=== PATIENT | male | born 1995 | race Hispanic/Latino ===

== ENCOUNTER 2020-03-21 15:02 | Observation (INO) | payer OTHER ==
[~2020-03-21] VITALS: Ht 175.3 cm; Wt 75.0 kg
--- NOTE | 2020-03-21 15:22 | NUR ---
TRIAGED AND RETURNED TO WAITING ROOM PENDING ROOM AVAILABLE. ACCOMPANIED BY FRIEND, STEADY GAIT, NO ACUTE SX OF DISTRESS
[2020-03-21 18:33] LABS: ALBUMIN 4.5 g/dL (3.2-5.0); ALKALINE PHOSPHATASE 92 u/l (38-126); ANION GAP 13 (6-22 (CALC)); BILIRUBIN, TOTAL 0.8 mg/dL (0.0-1.4); BUN 11 mg/dL (9-20); BUN/CREATININE RATIO 15 (12-20 (CALC)); CARBON DIOXIDE 27 mmol/l (22-30); CHLORIDE 105 mmol/l (95-108); CREATININE 0.8 mg/dL (0.7-1.3); GFR > 60 ML/MIN (>=60 (CALC)); GFR FOR AFR.AMER. > 60 ML/MIN (>=60 (CALC)); LIPASE 70 u/l (23-300); POTASSIUM 4.1 mmol/l (3.5-5.1); SGOT/AST 33 u/l (17-59); SODIUM 141 mmol/l (137-146); TOTAL PROTEIN 7.6 g/dL (6.3-8.2)
[2020-03-21 18:43] LABS: URINE BILIRUBIN - DIPSTICK NEGATIVE (NEGATIVE); URINE BLOOD DIPSTICK NEGATIVE (NEGATIVE); URINE COLOR YELLOW; URINE GLUCOSE - DIPSTICK NEGATIVE (NEGATIVE); URINE KETONE NEGATIVE (NEGATIVE); URINE LEUK ESTERASE NEGATIVE (NEGATIVE); URINE NITRITE - DIPSTICK NEGATIVE (Negative); URINE PROTEIN - DIPSTICK NEGATIVE (NEG-TRACE); URINE SPECIFIC GRAVITY 1.025
--- NOTE | 2020-03-21 19:00 | NUR ---
PT RESTING ON STRETCHER IN NAD. RESP EVEN AND UNLABORED. SKIN WARM AND DRY. DISCUSSED PLAN OF CARE. VERBALIZED UNDERSTANDING. DENIES ANY NEEDS. VISITOR BEDSIDE WITH PT. CALL LIGHT WITHIN REACH.
[2020-03-21 19:32] LABS: HEMATOCRIT 44.4 % (39.0-50.0); HEMOGLOBIN 14.7 g/dl (14.0-18.0); IMMATURE GRANULOCYTES 0.2 % (0.0-5.0); MEAN CELL VOLUME 97.6 fL CALC (80.0-100.0); MEAN CORPUSCULAR HGB 32.3 pG CALC (26.0-32.0); MEAN CORPUSCULAR HGB CONC 33.1 g/dL CAL (32.0-36.0); NEUT# 7.33 thou/uL (1.82-7.42); RED BLOOD COUNT 4.55 mill/uL (4.70-6.10)
--- NOTE | 2020-03-21 19:35 | NUR ---
REPORT RECEIVED FROM JESÚS. PATIENT RESTING ON STRETCHER. AWAITING CAT SCAN TO BE COMPLETED.
--- NOTE | 2020-03-21 20:35 | NUR ---
PT RETURNS FROM CT VIA WC. PT RESTING ON STRETCHER WITH EYES OPEN. DISCUSSED WAIT TIME FOR RESULTS WITH PT. VEBRALIZED UNDERSTANDING. DENIES ANY NEEDS. VSS. SKIN WARM AND DRY.
--- NOTE | 2020-03-21 21:15 | NUR ---
NEW IV ESTABLISHED. PREVIOUS IV DISCONTINUED DUE TO DIFFICULTY FLUSHING. PATIENT DENIED PAIN AT IV SITE, BUT DID NOT FLUSHE WITH EASE.
--- NOTE | 2020-03-21 21:30 | NUR ---
IVF HUNG AND ABX HUNG ORDERED. PATIENT INFORMED OF PLANS TO ADMIT TO HOSPITAL AND HAVE SURGERY IN THE MORNING. PATIENT ALSO INFORMED OF ER HOLD ADMIT STATUS. VISITOR AND PATIENT VERBALIZED UNDERSTANDING OF PLAN OF CARE.
--- NOTE | 2020-03-21 23:00 | NUR ---
PT RELOCATED ROOM # 15 AND PLACED INTO HOSPITAL BED. DISCUSSED ADMISSION STATUS AND ADMIT ASSESSMENT COMPLETED. NORMAL SALILNE INITIATED @ 150 CC/HR PER MAR ORDER. PLACED ON MONITOR FOR VS. PT INSTRUCTED LANDSCAPE MANAGEMENT TECHNICIAN LIGHT AND ROOM.
--- NOTE | 2020-03-21 23:30 | NUR ---
PATIENT MOVED TO BED 15 AN ER HOLD. PATIENT GIVEN POILLOW AND BALNKET, POSITIONED FOR COMFORT. PATIENT REMINDED OF PLAN OF CARE. CALL LIGHT WITHIN REACH. REINFORCED NPO STATUS.
[2020-03-22] VITALS (10 sets, daily range): BP systolic 102–131; BP diastolic 51–79
--- NOTE | 2020-03-22 03:30 | NUR ---
PATIENT RESTING QUIETLY ON HOSPITAL BED. DENIES ANY COMPLAINTS OR NEEDS AT PRESENT. CALL LIGHT WITH REACH.
[2020-03-22 03:57] LABS: IMMATURE GRANULOCYTES 0.4 % (0.0-5.0); MEAN CELL VOLUME 97.6 fL CALC (80.0-100.0); MEAN CORPUSCULAR HGB 32.9 pG CALC (26.0-32.0); MEAN CORPUSCULAR HGB CONC 33.7 g/dL CAL (32.0-36.0); NEUT# 3.34 thou/uL (1.82-7.42); RED BLOOD COUNT 3.71 mill/uL (4.70-6.10); RED CELL DISTRI WIDTH 10.9 % (11.5-15.5)
[2020-03-22 04:01] LABS: HEMATOCRIT 36.2 % (39.0-50.0); HEMOGLOBIN 12.2 g/dl (14.0-18.0)
[2020-03-22 04:13] LABS: ANION GAP 7 (6-22 (CALC)); BUN 8 mg/dL (9-20); BUN/CREATININE RATIO 14 (12-20 (CALC)); CARBON DIOXIDE 22 mmol/l (22-30); CHLORIDE 114 mmol/l (95-108); CREATININE 0.6 mg/dL (0.7-1.3); GFR > 60 ML/MIN (>=60 (CALC)); GFR FOR AFR.AMER. > 60 ML/MIN (>=60 (CALC)); POTASSIUM 3.4 mmol/l (3.5-5.1); SODIUM 140 mmol/l (137-146)
--- NOTE | 2020-03-22 06:24 | NUR ---
PATIENT RESTING ON STRETCHER. ABFarshad [place]. PATIENT DENIES PAIN AT PRESENT. GIVEN ADDITIONAL WARM BLANKET.
--- NOTE | 2020-03-22 06:48 | NUR ---
CALLED [facility] FOR ROOM. PT TO GO TO ROOM 260 AFTER SHIFT CHANGE
--- NOTE | 2020-03-22 07:01 | NUR ---
REPORT CALLED TO [facility]. PATIENT READIED FOR TRANSPORT AFTER SHIFT CHANGE.
--- NOTE | 2020-03-22 07:53 | NUR ---
PATIENT TRANSFERRED TO [facility] ROOM 260. STABLE, IV INTACT.
--- NOTE | 2020-03-22 07:54 | NUR ---
PT ARRIVED TO MED/SURG ROOM 260 IN STABLE CONDITION VIA WHEELCHAIR ACCOMPANIED BY GERARD TODD;PT AMBULATED TO BEDSIDE WITH A STEADY GAIT;VS OBTAINED;PT A&O X4, ORIENTED TO ROOM AND CALL LIGHT SYSTEM;PT MALAGASY SPEAKING ONLY, TRANSLATION PROVIDED BY FEROZ WORTHINGTON;PT REPORTS ABDOMINAL PAIN STARTING YESTERDAY 03/21/20;PT REPORTS RIGHT SIDED ABDOMINAL PAIN TO BE 3/10 ON THE PAIN SCALE AT THIS TIME DENYING ANY PAIN MEDICATION,PAIN SCALE AND REPORTING EDUCATED;RESPIRATIONS EVEN AND UNLABORED ON RA,CLEAR LUNG SOUNDS;ABDOMEN SOFT ON PALPATION AND ACTIVE IN ALL 4 QUADRANTS,LAST BM 03/22/20;STRONG PEDAL PULSES;SKIN INTACT;#20G TO RFA INFUSING NS @ 100ML/HR,SITE APPEARS HEALTHY;NPO DIET REINFORCED;PT DENIES ANY ADDITIONAL NEEDS AT THIS TIME AND IS ENCOURAGED TO CALL FOR ASSISTANCE IF NEEDED;FALL PRECAUTIONS IN PLACE WITH BED IN THE LOWEST POSITION AND CALL LIGHT IN REACH;WILL CONTINUE TO MONITOR
--- NOTE | 2020-03-22 08:16 | NUR ---
AT BEDSIDE DISCUSSING POC.
--- NOTE | 2020-03-22 10:15 | NUR ---
PT TRANSPORTED TO OR IN STABLE CONDITION VIA STRETCHER ACCOMPANIED BY GERARD MONREAL AND GERARD LITTLEJOHN.
--- NOTE | 2020-03-22 12:52 | NUR ---
PT ARRIVED BACK TO MED/SURG ROOM 260 IN STABLE CONDITION VIA STRETCHER ACCOMPANIED BY GERARD LACY;PT TRANSPORTED TO BED INDEPENDENTLY;VS OBTAINED;PT DROWSY BUT A&O X4;TRANSLATION PROVIDED BY FEROZ WORTHINGTON;RESPIRATIONS EVEN AND UNLABORED ON RA;I.S. PROVIDED AND PT EDUCATED ON USE 10X PER HOUR;ABDOMEN DISTENDED/SOFT ON PALPATION AND X3 INCISIONAL AREAS NOTED WITH DERMOBOND IN PLACE, INCISION SITES WELL APPROX;STRONG PEDAL PULSES AND SCD'S APPLIED;#20G TO RFA REMAINS INTACT INFUSING NS @ 100ML/HR PER ORDER;WATER PROVIDED PER REQUEST;PT DENIES ANY ADDITIONAL NEEDS AND IS ENCOURAGED TO CALL FOR ASSISTANCE IF NEEDED;FALL PRECAUTIONS IN PLACE WITH CALL LIGHT IN REACH;WILL CONTINUE TO MONITOR
--- NOTE | 2020-03-22 14:20 | NUR ---
PT RESTING IN SEMI FOWLERS POSITION;RESPIRATIONS EVEN AND UNLABORED ON RA;PT REPORTS ABDOMINAL PAIN RATING 6/10 ON THE PAIN SCALE AND REQUESTS PAIN MEDICATION,PT MEDICATED WITH PRN PERCOCET 5/325MG PO AT THIS TIME;IV FLUIDS CONTINUE TO INFUSE WITH EASE PER ORDER;PT DENIES ANY ADDITIONAL NEEDS AND IS ENCOURAGED TO CALL FOR ASSISTANCE IF NEEDED;FALL PRECAUTIONS IN PLACE WITH CALL LIGHT IN REACH;WILL CONTINUE TO MONITOR
--- NOTE | 2020-03-22 15:30 | NUR ---
PT RESTING IN SEMI FOWLERS POSITION;RESPIRATIONS EVEN AND UNLABORED ON RA;PT REPORTS 0/10 PAIN ON THE PAIN SCALE AFTER PAIN MEDICATION ADMINISTRATION;IV FLUIDS CONTINUE TO INFUSE WITH EASE;PT DENIES ANY ADDITIONAL NEEDS AT THIS TIME AND IS ENCOURAGED TO CALL FOR ASSISTANCE IF NEEDED;SNACKS PROVIDED PER REQUEST;PT DENIES ANY ADDITIONAL NEEDS AND IS ENCOURAGED TO CALL FOR ASSISTANCE IF NEEDED;CALL LIGHT IN REACH;WILL CONTINUE TO MONITOR
--- NOTE | 2020-03-22 19:01 | NUR ---
REPORT FROM ADE[facility]YO PATTERSON. PT NOTED RESTING IN BED. ALERT AND ORIENTED. NO APPARENT DISTRESS NOTED. PT DENIES ANY PAIN. ABD SOFT, INCISIONS X3 CLOSED WITH DERMABOND CDI. ACTIVE BOWEL SOUNDS NOTED. PT DENIES ANY CURRENT WANTS OR NEEDS. CALL LIGHT WITHIN REACH. WILL CONTINUE TO MONITOR.
--- NOTE | 2020-03-22 21:19 | NUR ---
WARM BLANKET PROVIDED AT THIS TIME. PT AFEBRILE. NO OTHER WANTS OR NEEDS. WILL CONTINUE TO MONITOR.
[2020-03-23] VITALS: BP 109/63
--- NOTE | 2020-03-23 00:02 | NUR ---
PT RESTING IN BED WITH EYES CLOSED. WAKES EASILY. DENIES ANY PAIN OR DISCOMFORT. CALL LIGHT WITHIN REACH. WILL CONTINUE TO MONITOR.
[2020-03-23 03:16] VITALS: BP 112/60
--- NOTE | 2020-03-23 04:16 | NUR ---
PT RESTING IN BED. NO APPARENT DISTRESS NOTED. IV FLUIDS INFUSING WITHOUT DIFFICULTY. PT DENIES ANY PAIN OR DISCOMFORT. CALL LIGHT WITHIN REACH. WILL CONTINUE TO MONITOR.
[2020-03-23 06:10] LABS: IMMATURE GRANULOCYTES 0.3 % (0.0-5.0); MEAN CELL VOLUME 97.4 fL CALC (80.0-100.0); MEAN CORPUSCULAR HGB CONC 32.8 g/dL CAL (32.0-36.0); NEUT# 5.69 thou/uL (1.82-7.42); RED BLOOD COUNT 4.6 mill/uL (4.70-6.10); RED CELL DISTRI WIDTH 10.6 % (11.5-15.5)
[2020-03-23 06:11] LABS: HEMATOCRIT 44.8 % (39.0-50.0); HEMOGLOBIN 14.7 g/dl (14.0-18.0)
--- NOTE | 2020-03-23 07:00 | NUR ---
REPORT RECEIVED FROM YESENIA ROMAN. PT RESTING IN BED, NO S/S OF DISTRESS AT THIS TIME. SAFETY PRECAUTIONS IN PLACE. WILL CONTINUE TO MONITOR.
[2020-03-23 08:04] VITALS: BP 124/55
--- NOTE | 2020-03-23 08:04 | NUR ---
PT RESTING IN BED ALERT. RESPIRATIONS ARE EVEN AND UNLABORED ON RA, LUNGS SOUND CLEAR. PEDAL PULSES ARE STRONG. SAFETY PRECAUTIONS IN PLACE. WILL CONTINUE TO MONITOR.
--- NOTE | 2020-03-23 11:10 | NUR ---
PT PROVIDED WITH DISCHARGE INTRUCTIONS, VIANCA GEE TRANSLATED.
--- NOTE | 2020-03-23 12:36 | NUR ---
Discharge instructions given. Patient verbalizes understanding of same. Discharged in stable condition via Wheelchair to Home with staff. All belongings sent with pt.
--- NOTE | 2020-03-23 13:15 | NUR ---
Patient is here for Procrit injection [place] [address] units on 03/23/20, [place] [address] units on 03/09/20. Current Hgb on 03/23/20: 10 g/dL Previous Hgb on 03/09/20: 10.2 g/dL Previous Iron study on 03/09/20: 138 ug/dL % Saturation on 03/09/20: 50 % Transferrin on 03/09/20: 188 mg/dL Ferritin on 03/09/20: 277 ng/mL Next Iron Study on: 06/15/20 Next Hgb due on: 04/06/20 Iron study on 03/09/20: shows no need for suplement of iron. [place] [address] [place], on 04/06/20. Notes: QOL assessment Side effects: No Dose adjustments: No New dose:
== END 2020-03-23 12:36 | disposition home or self-care (01) | DRG 343 ==
LOC: ED 15:02 → ED-I 21:17 → ED 21:26 → ED-I 21:27 → MS2 21:27
PROVIDERS: Family Medicine; Surgery; ADMIT Internal Medicine; ATTEND Internal Medicine
PROC: 0DTJ4ZZ Resection of Appendix, Percutaneous Endoscopic Approach (ICD-10-PCS; principal; 2020-03-22)
DX: K35.30 Acute appendicitis with localized peritonitis, without perforation or gangrene (principal); Z20.828 Contact with and (suspected) exposure to other viral communicable diseases
CPT/HCPCS: G0378; J0131; J1100; Q9967